=== PATIENT | female | born 1935 | race Caucasian/White ===

== ENCOUNTER 2016-10-21 11:52 | Emergency (ER) | payer MEDICARE, OTHER ==
--- NOTE | 2016-10-21 12:22 | ERPHSYRPT ---
- History of Present Illness Time Seen by Provider: 10/21/16 12:13 Source: patient, family Exam Limitations: no limitations Patient Subjective Stated Complaint: "I started coughing up green stuff last night. i saw him yesterday and he gave me levoquin, and he wanted me to go to [facility] to get a x-ray and pulmonary function test today. But, I did not hardly sleep last night and just didn't feel up to it." Triage Nursing Assessment: aox3, breathing non labored while sitting, sob noted when standing, skin pink warm dry, productive cough with sputum production, exporitory wheezes noted throughout Physician History: The patient is an 81-year-old female with her and daughter complaining of a productive cough for 2 or 3 days. She saw a doctor yesterday for this ailment who gave her Levaquin. She was to follow up with this doctor today for chest x-ray and pulmonary function testing. She said she was too weak to go to that office. She then was scheduled at 11:15 for follow-up with the doctor but her daughter thought it best to come to the emergency room for chest x-ray and breathing treatments. The patient has a past medical history of COPD and she still smokes. She is visiting her daughter locally. The patient is from [place] and forgot to bring her Combivent with her. Patient denies fever or chills. Last night she had numerous episodes of cough with sputum. Timing/Duration: day(s) (3) Activities at Onset: none Severity of Dyspnea-Max: mild Severity of Dyspnea-Current: mild Possible Cause: occasional episodes, smoke exposure Modifying Factors: Improves With: coughing Associated Symptoms: denies symptoms Allergies/Adverse Reactions: NKA Allergy (Verified 06/21/16 14:43) Home Medications: Levothyroxine Sodium 100 Mcg [Synthroid 100 Mcg] 100 mcg PO DAILY 09/25/12 [History] Metformin HCl 500 mg [Glucophage 500 MG] 500 mg PO TID 09/25/12 [History] Ipratropium/Albuterol Sulfate [Combivent Inhaler] 1 puff IH UD PRN 12/26/15 [ History] Olmesartan/Hydrochlorothiazide [Benicar Hct 40-12.5 mg Tablet] 1 each PO DAILY 12/26/15 [History] Hx Tetanus, Diphtheria Vaccination/Date Given: Yes (unknown) Hx Influenza Vaccination/Date Given: Yes (2016) Hx Pneumococcal Vaccination/Date Given: Yes - Review of Systems Constitutional: No Fever, No Chills Eyes: No Symptoms Ears, Nose, & Throat: No Symptoms Respiratory: Cough, Dyspnea, Wheezing Cardiac: No Chest Pain, No Edema, No Syncope Abdominal/Gastrointestinal: No Abdominal Pain, No Nausea, No Vomiting, No Diarrhea Genitourinary Symptoms: No Dysuria Musculoskeletal: No Back Pain, No Neck Pain Skin: No Rash Neurological: No Dizziness, No Focal Weakness, No Sensory Changes Psychological: No Symptoms Endocrine: No Symptoms Hematologic/Lymphatic: No Symptoms Immunological/Allergic: No Symptoms All Other Systems: Reviewed and Negative - Past Medical History Pertinent Past Medical History: Yes Neurological History: No Pertinent History ENT History: No Pertinent History Cardiac History: Hypertension Respiratory History: COPD Endocrine Medical History: Hypothyroidism Musculoskeletal History: Arthritis GI Medical History: No Pertinent History History: No Pertinent History Psycho-Social History: No Pertinent History Female Reproductive Disorders: Breast Cancer - Past Surgical History Past Surgical History: Yes Neuro Surgical History: No Pertinent History Cardiac: No Pertinent History Respiratory: No Pertinent History Gastrointestinal: Appendectomy, Cholecystectomy Genitourinary: No Pertinent History Musculoskeletal: Orthopedic Surgery Female Surgical History: Hysterectomy Other Surgical History: 2 knee replacements right knee, left knee replacement. lumpectomy right breast - Social History Smoking Status: Light tobacco smoker How long have you smoked: 45 Exposure to second hand smoke: No Drug Use: none Patient Lives Alone: No - Nursing Vital Signs Nursing Vital Signs: Initial Vital Signs Temperature 97.7 F Temperature Source Oral Pulse Rate 74 Respiratory Rate 20 Blood Pressure 127/64 Pain Intensity 0 - Physical Exam General Appearance: no apparent distress, alert Eye Exam: PERRL/EOMI Ears, Nose, Throat Exam: hearing grossly normal Neck Exam: normal inspection, supple Respiratory Exam: diminished breath sounds, rhonchi, wheezing Cardiovascular/Chest Exam: normal heart sounds, regular rate/rhythm Abdominal/Gastrointestinal Exam: soft, No tenderness, No distention, No mass Rectal Exam: not done Extremity Exam: non-tender, normal range of motion, normal inspection, no calf tenderness, no pedal edema Neurologic Exam: alert, oriented x 3, cooperative, 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, sensation nml, No motor deficits Skin Exam: normal color, warm, No dry SpO2 Interpretation: borderline oxygenation, O2 applied SpO2: 92 Oxygen Delivery: Room Air - Radiology Exams Chest X-ray Interpretation: Teleradiologist Report, Infiltrates (MIC infiltrate) Ordered Tests: Active Orders 24 hr Category Date Time Status IV Insertion STAT Care 10/21/16 12:26 Active Oxygen-ED Only NASAL CANNULA 2 lpm Care 10/21/16 12:26 Active CHEST 2 VIEWS (PA AND LAT) Stat Exams 10/21/16 12:26 Completed BMP Stat Lab 10/21/16 13:04 Received CBC W DIFF Stat Lab 10/21/16 13:04 Completed CULTURE,SPUTUM Stat Lab 10/21/16 13:20 Received Respiratory Nebulizer STAT RT 10/21/16 12:28 Completed Medication Summary Discontinued Medications Generic Name Dose Route Start Last Admin Trade Name Freq PRN Reason Stop Dose Admin Albuterol/Ipratropium 3 ml 10/21/16 12:26 Duoneb 0.5-3 Mg/3 Ml Neb IH 10/21/16 12:27 STAT ONE Albuterol/Ipratropium Confirm 10/21/16 12:51 Duoneb 0.5-3 Mg/3 Ml Neb Administered 10/21/16 12:52 Dose 3 ml IH .STK-MED ONE Methylprednisolone Sodium Succinate 125 mg 10/21/16 12:26 10/21/16 13:01 Solu-Medrol 125 Mg IV 10/21/16 12:27 125 mg STAT ONE Administration Methylprednisolone Sodium Succinate Confirm 10/21/16 12:52 Solu-Medrol 125 Mg Administered 10/21/16 12:53 Dose 125 mg .ROUTE .STK-MED ONE Lab/Rad Data: Laboratory Result Diagrams 10/21/16 13:04 Laboratory Results 10/21/16 Range/Units 13:04 WBC 5.9 (4.0-10.5) K/mm3 RBC 3.62 L (4.1-5.4) M/mm3 Hgb 10.8 L (12.0-16.0) gm/dl Hct 33.6 L (35-47) % MCV 92.8 (78-100) fl MCH 29.8 (26-32) pg MCHC 32.1 (32-36) g/dl RDW 13.2 (11.5-14.0) % Plt Count 322 (150-450) K/mm3 MPV 8.6 (6-9.5) fl Gran % 73.1 H (36.0-66.0) % Lymphocytes % 11.8 L (24.0-44.0) % Monocytes % 12.9 H (0.0-12.0) % Eosinophils % 1.7 (0.00-5.0) % Basophils % 0.5 (0.0-0.4) % Basophils # 0.03 (0-0.4) - Progress Progress: improved, re-examined Air Movement: good Blood Culture(s) Obtained: No Antibiotics given: No Counseled pt/family regarding: lab results, diagnosis, rad results - Departure Time of Disposition: 13:37 Departure Disposition: Home Clinical Impression: Infiltrate noted on imaging study, COPD exacerbation Condition: Stable Critical Care Time: No Instructions: Chronic Obstructive Pulmonary Disease Additional Instructions: Continue with levfloxacin as directed. Prednisone and combivent as directed. Follow up tomorrow if no improvement. Prescriptions: Ipratropium/Albuterol Sulfate [Combivent Inhaler] 14.7 gm IH QID #0 aer.w.adap Prednisone 20 mg [Deltasone 20 mg] 60 mg PO DAILY #15 tablet
[2016-10-21] MEDS ORDERED: DUONEB 0.5-3 MG/3 ml Neb IH ONE ×2 (12:26→12:51)
[2016-10-21] MEDS ORDERED: solu-MEDROL 125 MG IV ONE (12:26)
[2016-10-21] MEDS ORDERED: solu-MEDROL 125 MG ONE (12:52)
--- NOTE | 2016-10-21 12:52 | XRAY ---
Indication: Cough. Achiness. Comparison: April 15, 2016 PA/lateral chest again hyperinflated with new patchy inferior left upper lobe infiltrate. Remaining heart and lungs unremarkable. Bony thorax intact again with mild degenerative changes.
[2016-10-21 13:10] LABS: BASOPHIL % 0.5 % (0.0-0.4); Eosinophil % 1.7 % (0.00-5.0); Granulocytes % 73.1 % (36.0-66.0); Lymphocytes % 11.8 % (24.0-44.0); Mean Cell Volume 92.8 fl (78-100); Mean Corpuscular Hemoglobin 29.8 pg (26-32); Mean Platelet Volume 8.6 fl (6-9.5); Monocytes % 12.9 % (0.0-12.0); Platelet Count 322 K/mm3 (150-450); Red Blood Count 3.62 M/mm3 (4.1-5.4); Red Cell Distribution Width 13.2 % (11.5-14.0); White Blood Count 5.9 K/mm3 (4.0-10.5)
[2016-10-21 13:38] LABS: ANION GAP 11.3 MEQ/L (5-15); Carbon Dioxide 28.6 mEq/L (21-32)
[2016-10-21 14:04] VITALS: BP 123/55; PULSE 79; O2SAT 93
== END 2016-10-21 14:05 ==
LOC: ED 11:52
DX: R91.8 Other nonspecific abnormal finding of lung field (principal); J44.1 Chronic obstructive pulmonary disease with (acute) exacerbation; F17.200 Nicotine dependence, unspecified, uncomplicated
CPT/HCPCS: 36000; 36415; 71020; 80048; 85025; 87070; 94640; 96374; 99283; J2930